=== PATIENT | female | born 1955 | race Caucasian/White ===

== ENCOUNTER 2019-01-27 10:14 | Inpatient (IN) ==
[2019-01-27] MEDS ORDERED: ONDANSETRON 4 MG/2 ML VIAL IV STA (10:48)
[2019-01-27] MEDS ORDERED: PIPERACILLIN/TAZOBACTAM 3,375 MG in SODIUM CHLORIDE 0.9% 100 ML IV STA (10:48)
[2019-01-27] MEDS ORDERED: SODIUM CHLORIDE 0.9% 1,000 ML IV STA (10:48)
[2019-01-27] MEDS ORDERED: MORPHINE 4 MG/1 ML VIAL IV STA (11:14)
[2019-01-27 11:16] LABS: Basophils # 0.1 10*3/uL (0.0-0.2); Basophils % 0.3 % (0.0-0.8); Eosinophils # 0.1 10*3/uL (0.0-0.87); Eosinophils % 0.4 % (0.00-10.9); Hematocrit 41.1 VOL% (35.7-47.0); Hemoglobin 12.9 GM/DL (12.0-16.0); Immature Granulocytes % 0.8 %; Immature Granulocytes Absolute 0.12 #; Lymphocytes # 1.4 10*3/uL (1.4-4.0); Mean Corpuscular HGB Conc 31.4 GM/DL (32-36); Mean Corpuscular Volume 92.6 FL (87-102); Mean Platelet Volume 9.1 FL (9.6-12.0); Monocytes % 5.9 % (1.7-12.7); Neutrophils % 83.6 % (38.7-73.9); Platelet Count 274 T/CUMM (130-400); Red Blood Count 4.44 MC/CUMM (3.8-5.5); Red Cell Distribution Width 13.8 % (9.3-17.3); White Blood Count 15.9 T/CUMM (4-12)
[2019-01-27] MEDS ORDERED: MORPHINE 4 MG/1 ML VIAL ONE (11:16)
[2019-01-27 11:25] LABS: INR 0.9; Partial Thromboplastin Time 27.5 SECS (0-40)
[2019-01-27 11:31] LABS: Alanine Aminotransferase 18 U/L (13-56); Albumin 3.2 G/DL (3.4-5.0); Alkaline Phosphatase 113 U/L (45-117); Amylase 12 U/L (25-115); Aspartate Amino Transferase 15 U/L (0-37); Blood Urea Nitrogen 7 MG/DL (7-18); Calcium 8.3 MG/DL (8.5-10.1); Glucose 115 MG/DL (74-106); Osmolality,Calculated 271.8 MOS/KG (273-304); Total Protein 7.7 G/DL (6.4-8.3)
[2019-01-27] MEDS ORDERED: BISACODYL 5 MG TABLET PO PRN (12:51)
[2019-01-27] MEDS ORDERED: ALBUTEROL/IPRATROPIUM 3 ML NEB RESP TX PRN (12:51)
[2019-01-27] MEDS ORDERED: HYDROmorphone 2 MG/1 ML VIAL IV PRN (12:51)
[2019-01-27] MEDS ORDERED: ACETAMINOPHEN 325 MG TABLET PO PRN (12:51)
[2019-01-27] MEDS ORDERED: traMADol 50 MG TABLET PO PRN (12:55)
[2019-01-27] MEDS: ALBUTEROL/IPRATROPIUM 3 ML NEB RESP TX SCH ×2 (13:40→19:28)
[2019-01-27 14:17] LABS: Troponin I < 0.015 NG/ML (0.00-0.045)
[2019-01-27] MEDS: LACTATED RINGERS 1,000 ML IV SCH (17:52)
[2019-01-27] MEDS: ONDANSETRON 4 MG/2 ML VIAL IV PRN (18:00)
[2019-01-27] MEDS: PIPERACILLIN/TAZOBACTAM 3,375 MG in SODIUM CHLORIDE 0.9% 100 ML IV SCH (20:56)
[2019-01-28] MEDS: ALBUTEROL/IPRATROPIUM 3 ML NEB RESP TX SCH ×4 (01:11→19:43)
[2019-01-28] MEDS: PIPERACILLIN/TAZOBACTAM 3,375 MG in SODIUM CHLORIDE 0.9% 100 ML IV SCH ×3 (04:48→21:12)
[2019-01-28 04:58] LABS: Basophils % 0.3 % (0.0-0.8); Eosinophils # 0.2 10*3/uL (0.0-0.87); Eosinophils % 1.2 % (0.00-10.9); Hemoglobin 11.3 GM/DL (12.0-16.0); Immature Granulocytes % 0.7 %; Immature Granulocytes Absolute 0.09 #; Lymphocytes % 15.8 % (21.3-54.2); Mean Corpuscular HGB Conc 31.4 GM/DL (32-36); Mean Corpuscular Volume 92.8 FL (87-102); Mean Platelet Volume 9.3 FL (9.6-12.0); Monocytes % 7.5 % (1.7-12.7); Neutrophils % 74.5 % (38.7-73.9); Platelet Count 259 T/CUMM (130-400); Red Blood Count 3.88 MC/CUMM (3.8-5.5); White Blood Count 12.4 T/CUMM (4-12)
[2019-01-28 05:28] LABS: Calcium 7.6 MG/DL (8.5-10.1); Osmolality,Calculated 273.5 MOS/KG (273-304)
[2019-01-28] MEDS: LACTATED RINGERS 1,000 ML IV SCH ×2 (08:48→22:01)
[2019-01-28] MEDS: ONDANSETRON 4 MG/2 ML VIAL IV PRN (08:48)
[2019-01-28] MEDS: PANTOPRAZOLE 40 MG TABLET PO SCH (10:43)
[2019-01-28] MEDS: POTASSIUM CHLORIDE RIDER 10 MEQ in PREMIX 1 EACH IV PRN ×4 (10:44→18:19)
[2019-01-28] MEDS ORDERED: BUPIVACAINE MPF 0.25% /EPI 30 ML VIAL ONE (12:20)
[2019-01-28] MEDS ORDERED: LIDOCAINE 1%/EPI INJ 20 ML VIAL ONE (12:20)
[2019-01-28] MEDS ORDERED: TISSUE ADHESIVE 1 EACH APPLICATOR TOP ONE (12:21)
[2019-01-28] MEDS ORDERED: ALBUTEROL/IPRATROPIUM 3 ML NEB RESP TX ONE (12:47)
[2019-01-28] MEDS ORDERED: SUGAMMADEX 200 MG/2 ML VIAL IV ONE (13:44)
[2019-01-28] MEDS ORDERED: LEVALBUTEROL 1.25 MG/3 ML NEB RESP TX ONE ×2 (14:14→14:18)
[2019-01-28] MEDS ORDERED: ONDANSETRON 4 MG/2 ML VIAL IV PRN (14:21)
[2019-01-28] MEDS: HYDROmorphone 2 MG/1 ML VIAL IV PRN ×6 (14:30→20:28)
[2019-01-28] MEDS ORDERED: ESMOLOL 100 MG/10 ML VIAL IV ONE (14:34)
[2019-01-28] MEDS ORDERED: PROPOFOL 200 MG/20 ML VIAL IV ONE (14:34)
[2019-01-28] MEDS ORDERED: fentaNYL 100 MCG/2 ML VIAL ONE (14:34)
[2019-01-28] MEDS ORDERED: DEXAMETHASONE 4 MG/1 ML VIAL ONE (14:34)
[2019-01-28] MEDS ORDERED: MIDAZOLAM 2 MG/2 ML VIAL ONE (14:34)
[2019-01-28] MEDS ORDERED: SEVOFLURANE 1 UNIT/15 MINUTE INH ONE (14:34)
[2019-01-28] MEDS ORDERED: LACTATED RINGERS 1,000 ML IV ONE (14:35)
[2019-01-28] MEDS ORDERED: ALBUTEROL INHALER 8 GM INH ONE (14:35)
[2019-01-28] MEDS ORDERED: ROCURONIUM 100 MG/10 ML VIAL IV ONE (14:35)
[2019-01-29] MEDS: HYDROmorphone 2 MG/1 ML VIAL IV PRN ×3 (00:30→13:55)
[2019-01-29] MEDS: ALBUTEROL/IPRATROPIUM 3 ML NEB RESP TX SCH ×4 (00:52→19:20)
[2019-01-29] MEDS: PIPERACILLIN/TAZOBACTAM 3,375 MG in SODIUM CHLORIDE 0.9% 100 ML IV SCH ×3 (04:51→21:18)
[2019-01-29] MEDS: LACTATED RINGERS 1,000 ML IV SCH ×2 (08:20→17:42)
[2019-01-29] MEDS: PANTOPRAZOLE 40 MG TABLET PO SCH (08:21)
[2019-01-29] MEDS: SIMETHICONE CHEW 80 MG TABLET PO PRN (18:17)
[2019-01-30] MEDS: ALBUTEROL/IPRATROPIUM 3 ML NEB RESP TX SCH ×2 (00:36→08:28)
[2019-01-30] MEDS: SIMETHICONE CHEW 80 MG TABLET PO PRN ×2 (01:41→09:06)
[2019-01-30] MEDS: LACTATED RINGERS 1,000 ML IV SCH ×2 (04:35→10:12)
[2019-01-30] MEDS: PIPERACILLIN/TAZOBACTAM 3,375 MG in SODIUM CHLORIDE 0.9% 100 ML IV SCH (06:24)
[2019-01-30 07:38] VITALS: BP 133/70
[2019-01-30] MEDS: PANTOPRAZOLE 40 MG TABLET PO SCH (09:05)
== END 2019-01-30 11:47 | disposition home or self-care (01) | DRG 418 ==
LOC: N.ED 10:14 → N.2E 12:51
PROVIDERS: ADMIT Surgery; ATTEND Surgery
PROC: LAPCHOL (2019-01-28 12:27)